=== PATIENT | male | born 1950 | race Caucasian/White ===

== ENCOUNTER 2016-10-03 11:21 | Day surgery (SDC) | payer OTHER ==
--- NOTE | 2016-10-03 12:20 | EDM.PDOC ---
[id number] [id number] FISH HOOK RT HAND Time Seen by Provider: 10/03/16 11:29 Source of Information: Reports: Patient, Family History Limitations: Reports: No Limitations - History of Present Illness INITIAL COMMENTS - FREE TEXT/NARRATIVE: 65 y.o.w.i-gtrvqx-[id number] to the ed with a fish hook in his r hand. Mild discomfort r hand, posterior aspect. No N/V/D or any other acute medical issues. Onset: Today Onset Date: 10/03/16 Onset Time: 09:00 Duration: Hour(s): Location: Reports: Upper Extremity, Right Quality: Reports: Dull Improves with: Reports: Rest Worsens with: Reports: Movement Context: Reports: Other (fish hook r hand) Associated Symptoms: Reports: No Other Symptoms Right Hand Pain Score (Numeric/FACES): 0 - Related Data Allergies Allergy/AdvReac Type Severity Reaction Status Date / Time No Known Allergies Allergy Verified 10/03/16 13:42 Home Meds: Home Meds traMADol HCl [Ultram] 50 mg PO Q6HR PRN #20 tablet 10/03/16 [Rx] Social & Family History - Tobacco Use Smoking Status *Q: Current Every Day Smoker Years of Tobacco use: 40 Packs/Tins Daily: 1 - Caffeine Use Caffeine Use: Reports: Coffee - Alcohol Use Days Per Week of Alcohol Use: 1 Number of Drinks Per Day: 1 Total Drinks Per Week: 1 - Recreational Drug Use Recreational Drug Use: No ED ROS GENERAL - Review of Systems Review Of Systems: See Below Constitutional: Reports: No Symptoms HEENT: Reports: No Symptoms Respiratory: Reports: No Symptoms Cardiovascular: Reports: No Symptoms Endocrine: Reports: No Symptoms GI/Abdominal: Reports: No Symptoms : Reports: No Symptoms Musculoskeletal: Reports: No Symptoms Skin: Reports: Wound (fish hook r posterior hand) Neurological: Reports: No Symptoms Psychiatric: Reports: No Symptoms Hematologic/Lymphatic: Reports: No Symptoms Immunologic: Reports: No Symptoms ED EXAM, SKIN/RASH Exam: See Below Exam Limited By: No Limitations General Appearance: Alert, WD/WN, Mild Distress, Thin Eye Exam: Bilateral Eye: Normal Inspection Ears: Normal External Exam Nose: Normal Inspection Throat/Mouth: Normal Inspection, Normal Lips Head: Atraumatic, Normocephalic Neck: Normal Inspection, Supple, Non-Tender Respiratory/Chest: No Respiratory Distress, Lungs Clear, Normal Breath Sounds Cardiovascular: Normal Peripheral Pulses, Regular Rate, Rhythm, No Edema, No JVD , No Murmur Peripheral Pulses: 1+: Femoral (L), Femoral (R) GI/Abdominal: Normal Bowel Sounds, Soft, Non-Tender, No Organomegaly, No Distention, No Abnormal Bruit, No Mass, Pelvis Stable (Male) Exam: Deferred Rectal (Males) Exam: Deferred Back Exam: Normal Inspection, Full Range of Motion Extremities: Normal Inspection, Other (fish hook r hand) Neurological: Alert, Oriented, CN II-XII Intact, Normal Cognition, Normal Gait, No Motor/Sensory Deficits Psychiatric: Normal Affect, Normal Mood Skin: Wound/Incision (fish hook r hand post aspect) Location, Skin: Upper Extremity, Right (r hand) Lymphatic: No Adenopathy ED SKIN PROCEDURES - Foreign Body Removal Indication:: Fish hook in r hand, dorsal aspect Consent Obtained:: Patient Performing Doctor:: Dandy Curtis Anesthesia Type: Local Anesthesia Other:: Marcain 0.5% Findings:: Fish hook r hand Complications:: Yes Comments:: After the exterior part of fishhook was cut off, the interior part of the fishhook moved into his 1st interphalanx and could not be anymore seen/palpated from the outside. A hand X ray showed part of the fishhook being in his 1st interphalanx. I made a smaal 0.7 cm incision to locate the fish hook, was unable to do so. Dr. Garcia, surgeon was called. He has seen and evaluated the pt in the er and took over the care. Course - Vital Signs Text/Narrative:: 65 y.o.w.h-lesbwu-iama to the ed with a fish hook in his r hand. Mild discomfort r hand, posterior aspect. No N/V/D or any other acute medical issues. PE: WNWD WM NAD with a triple barbwire in his r hand. Procedure: The affected area was locally anesthetized with Marcain, the exterior part of fishhook was cut off, the interior part of the fishhook moved into his 1st interphalanx and could not be anymore seen/palpated from the outside. A hand X ray showed part of the fishhook being in his 1st interphalanx. I made a small 0.7 cm incision to locate the fish hook, was unable to do so. Dr. Garcia, Surgeon was called. He has seen and evaluated the pt in the er and took over the care. Impression: Denise colon with complications Tx: Procedure, please see note above Consultation: Dr. Garcia, Surgeon: Please see note above Plan: OR Last Recorded V/S: Last Vital Signs Temp 36.8 C 10/03/16 15:45 Pulse 63 10/03/16 15:45 Resp 16 10/03/16 15:45 BP 123/75 10/03/16 15:45 Pulse Ox 96 10/03/16 15:45 - Orders/Labs/Meds Orders: Active Orders 24 hr Category Date Time Status Patient Status [ADT] Routine ADT 10/03/16 13:34 Active Patient to Empty Bladder [RC] ASDIRECTED Care 10/03/16 13:34 Active Ready for Discharge [RC] PER UNIT ROUTINE Care 10/03/16 14:52 Active Vaccines to be Administered [RC] PER UNIT ROUTINE Care 10/03/16 12:21 Active Verify Patient Consent Obtain [RC] ASDIRECTED Care 10/03/16 13:34 Active Nothing Per Oral Diet [DIET] Diet 10/03/16 Lunch Ordered Hand 2V Rt [CR] Stat Exams 10/03/16 12:36 Taken OR Fluoro-NC [CR] Stat Exams 10/03/16 13:36 Ordered Lactated Ringers [Ringers, Lactated] 1,000 ml Med 10/03/16 13:45 Active IV ASDIRECTED Sodium Chloride 0.9% [Saline Flush] Med 10/03/16 13:34 Active 10 ml FLUSH ASDIRECTED PRN Peripheral IV Insertion Adult [OM.PC] Routine Oth 10/03/16 13:34 Ordered Resuscitation Status Routine Resus Stat 10/03/16 13:34 Ordered Medication Orders Lactated Ringer's (Ringers, Lactated) 1,000 mls @ 125 mls/hr IV ASDIRECTED SANJAY Sodium Chloride (Saline Flush) 10 ml FLUSH ASDIRECTED PRN PRN Reason: Keep Vein Open Meds: Medications Generic Name Dose Route Start Last Admin Trade Name Freq PRN Reason Stop Dose Admin Lactated Ringer's 1,000 mls @ 125 mls/hr 10/03/16 13:45 Ringers, Lactated IV ASDIRECTED SANJAY Sodium Chloride 10 ml 10/03/16 13:34 Saline Flush FLUSH ASDIRECTED PRN Keep Vein Open Discontinued Medications Generic Name Dose Route Start Last Admin Trade Name Nichole PRN Reason Stop Dose Admin Bupivacaine HCl 12 ml 10/03/16 14:31 10/03/16 14:31 Marcaine 0.5% INJECT 10/03/16 14:32 12 ml .STK-MED ONE Administration Diphtheria/Tetanus/Acell Pertussis 0.5 ml 10/03/16 12:21 10/03/16 12:29 Adacel IM 10/03/16 12:22 0.5 ml .ONCE ONE Administration Cefoxitin Sodium 2 gm/ Sodium 100 mls @ 200 mls/hr 10/03/16 13:34 Chloride IV 10/03/16 14:03 ONETIME ONE Lidocaine/Epinephrine 12 ml 10/03/16 14:32 10/03/16 14:32 Xylocaine 1% With Epinephrine 1:100,000 INJECT 10/03/16 14:33 12 ml .STK-MED ONE Administration Departure - Departure Time of Disposition: 12:44 Disposition: Home, Self-Care 01 Condition: Good Clinical Impression: Fish hook injury of right hand - Discharge Information - My Orders Last 24 Hours: My Active Orders 10/03/16 12:21 Vaccines to be Administered [RC] PER UNIT ROUTINE 10/03/16 12:36 Hand 2V Rt [CR] Stat - Assessment/Plan Last 24 Hours: My Active Orders 10/03/16 12:21 Vaccines to be Administered [RC] PER UNIT ROUTINE 10/03/16 12:36 Hand 2V Rt [CR] Stat
[2016-10-03] MEDS ORDERED: Diphtheria,Pertussis(Acell),Tetanus Vaccine 0.5 ML SDV IM ONE (12:21)
--- NOTE | 2016-10-03 13:32 | PCM.HP ---
H&P History of Present Illness - General Date of Service: 10/03/16 Source of Information: Patient History Limitations: Reports: No Limitations - History of Present Illness Initial Comments - Free Text/Narative: Pt got fish hook caught in the back of his right hand. It was a three pronged hook. ED MD in getting it out cut off the shank with the resultant hook getting stuck in his hand. He was unable to retrieve it. Has been drinking nothing but water. - Related Data Allergies/Adverse Reactions: Allergies Allergy/AdvReac Type Severity Reaction Status Date / Time No Known Allergies Allergy Verified 10/03/16 11:25 Home Medications: Home Meds hydrOXYzine Pamoate [Vistaril] 25 mg PO Q6H PRN #20 cap 10/03/16 [Rx] Past Medical History - Past Health History Medical/Surgical History: Denies Medical/Surgical History Social & Family History - Tobacco Use Smoking Status *Q: Current Every Day Smoker Years of Tobacco use: 40 Packs/Tins Daily: 1 - Caffeine Use Caffeine Use: Reports: Coffee - Alcohol Use Days Per Week of Alcohol Use: 1 Number of Drinks Per Day: 1 Total Drinks Per Week: 1 - Recreational Drug Use Recreational Drug Use: No H&P Review of Systems - Review of Systems: Review Of Systems: See Below General: Reports: No Symptoms HEENT: Reports: No Symptoms Pulmonary: Reports: No Symptoms Cardiovascular: Reports: No Symptoms Gastrointestinal: Reports: No Symptoms Skin: Reports: Wound Exam - Exam Exam: See Below - Vital Signs Vital Signs: Last Vital Signs Temp 36.9 C 10/03/16 11:29 Pulse 70 10/03/16 11:29 Resp 16 10/03/16 11:29 BP 152/85 H 10/03/16 11:29 Pulse Ox 99 10/03/16 11:29 - Exam General: Alert, Oriented, Cooperative Lungs: Clear to Auscultation, Normal Respiratory Effort Cardiovascular: Regular Rate, Regular Rhythm Skin: Wound, Other (dorsum of the right hand. ) *Q Meaningful Use (ADM) - VTE *Q VTE Criteria *Q: - Stroke *Q Stroke Criteria *Q: - AMI *Q AMI Criteria *Q: - Problem List (1) Fish hook injury of right hand SNOMED Code(s): 732596024 ICD Code: S69.91XA - UNSP INJURY OF RIGHT WRIST, HAND AND FINGER(S), INIT ENCNTR Status: Acute Current Visit: Yes Problem List Initiated/Reviewed/Updated: Yes Orders Last 24hrs: Active Orders 24 hr Category Date Time Status Vaccines to be Administered [RC] PER UNIT ROUTINE Care 10/03/16 12:21 Active Hand 2V Rt [CR] Stat Exams 10/03/16 12:36 Taken Assessment/Plan Comment:: retained foreign body. Plan: extraction in the OR under anesthesia and fluoroscopy. the procedure and risks were explained to the pt to include bleeding, infection , injury to hand. expressed understanding and asks us to proceed.
[2016-10-03] MEDS ORDERED: cefOXitin 2 GM in Sodium Chloride 0.9% 100 ML IV ONE (13:34)
[2016-10-03] MEDS ORDERED: Sodium Chloride 0.9% 10 ML Syringe FLUSH PRN (13:34)
[2016-10-03] MEDS ORDERED: Lactated Ringers 1,000 ML IV SCH (13:45)
[2016-10-03] MEDS ORDERED: Lactated Ringers 1,000 ML IV ONE (14:16)
[2016-10-03] MEDS ORDERED: ceFAZolin 1 GM Vial IV ONE (14:16)
[2016-10-03] MEDS ORDERED: Propofol 200 MG/20 ML SDV IV ONE (14:16)
[2016-10-03] MEDS ORDERED: Midazolam 1 MG/ML 2 ML SDV IV ONE (14:16)
[2016-10-03] MEDS ORDERED: fentaNYL 100 MCG/2 ML SDV IV ONE (14:16)
[2016-10-03] MEDS ORDERED: Ondansetron 4 MG/2 ML SDV IVPUSH ONE (14:16)
[2016-10-03] MEDS ORDERED: Bupivacaine 0.5% 30 ML SDV INJECT ONE (14:31)
[2016-10-03] MEDS ORDERED: Lidocaine 1% with EPINEPHrine 1:100,000 20 ML MDV INJECT ONE (14:32)
--- NOTE | 2016-10-03 14:55 | PCM.OPNOTE ---
- General Post-Op/Procedure Note Date of Surgery/Procedure: 10/03/16 Operative Procedure(s): removal of fish hook of the right hand Findings: joshua of fish hook Pre Op Diagnosis: fish hook right hand Post-Op Diagnosis: Same Anesthesia Technique: Local (3ml 1% lido with epi/0.5% buvipicaine), MAC Primary Surgeon: Etienne Garcia Anesthesia Provider: Emiliana Rodríguez Complications: None Condition: Good Free Text/Narrative:: see dictation
[2016-10-03] MEDS ORDERED: traMADol 50 MG Tab PO ONE (15:38)
--- NOTE | 2016-10-03 17:30 | OR ---
DATE OF OPERATION: 10/03/2016 SURGEON: Etienne Garcia MD PROCEDURE PERFORMED: Removal of fish hook, right hand. PREOPERATIVE DIAGNOSIS: Fish hook impaled in dorsum of right hand. POSTOPERATIVE DIAGNOSIS: Fish hook impaled in dorsum of right hand. INDICATIONS FOR PROCEDURE: This is a 65-year-old white male, referred to the emergency department. He apparently he was fishing today and got a fish hook stuck in the dorsum of his right hand between the first and 2nd digits. Emergency room physician taking it out lost the end of it and was not able to successfully retrieve it. He was offered removal in the operating theater under local MAC. DESCRIPTION OF OPERATION: After an excellent IV sedation was administered, the area was prepped and draped in usual sterile manner. Approximately 3 mL was used to infiltrate the wound, and on inserting a hemostat, the end of the fish hook was easily seen. This was rotated through the skin with no marked bleeding. The area was packed with iodoform and a bulky dressing was applied. The patient was taken to recovery in good condition. He will follow up on Wednesday for dressing change. /[id number] /MODL
--- NOTE | 2016-10-05 12:19 | CR ---
INDICATION: Foreign body right hand. [place] removal. FLUOROSCOPY UP TO ONE HOUR: Videofluoroscopy was minimal to localize a cut portion of a fishhook, which was in the area of the thenar eminence. Post removal fluoroscopic image showed no evidence of the fishhook. FARHEEN
--- NOTE | 2016-10-05 12:20 | CR ---
INDICATION: [place] broke off in hand. RIGHT HAND: A single and frontal and lateral examination of the right hand revealed a curved portion of the fishhook and joshua embedded in the soft tissues near the mid portion, between the first and second metacarpals. 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 Degenerative changes are also noted at the second and third metacarpophalangeal joints. Interphalangeal joint of the thumb and DIP joints in general, but mostly in the second, third, and fourth fingers. IMPRESSION: 1. Foreign body - fishhook- soft tissues between first and second metacarpals. 2. 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 MTDD
== END 2016-10-03 16:03 | disposition home or self-care (01) ==
LOC: FB.ED 11:21 → FB.SDS 13:34
PROVIDERS: ATTEND Surgery
DX: S60.551A Superficial foreign body of right hand, initial encounter (principal); F17.210 Nicotine dependence, cigarettes, uncomplicated; W45.8XXA Other foreign body or object entering through skin, initial encounter
CPT/HCPCS: 10120; 73120; 76000; 90715; 99284; A9270; J0690; J2250; J2405; J2704; J3010; J7120